=== PATIENT | female | born 1985 | race Caucasian/White ===

== ENCOUNTER 2020-05-02 18:42 | Emergency (ER) | payer OTHER ==
[~2020-05-02] VITALS: Ht 165.1 cm; Wt 68.0 kg
[2020-05-02 19:29] LABS: BASOPHILS 0.9 % (0.0-2.0); EOSINOPHILS 2.8 % (0.0-3.0); HEMOGLOBIN 12.3 gm/dL (12.0-15.0); LYMPHOCYTES 36.7 % (24.0-44.0); MCH 33.5 pg (26.0-34.0); MCHC 35.1 g/dL (28.0-37.0); MCV 95.4 fL (80.0-100.0); MONOCYTES 9.4 % (1.0-8.0); PLATELET COUNT 254 thou/uL (150-400); POLYS 50.2 % (36.0-66.0); RBC 3.67 mil/uL (4.20-5.00); RDW 12.7 % (10.5-14.5)
[2020-05-02 19:42] LABS: URINE BILIRUBIN NEGATIVE (Negative); URINE BLOOD NEGATIVE (Negative); URINE CLARITY CLEAR; URINE COLOR YELLOW; URINE GLUCOSE-RANDOM* NEGATIVE (Negative); URINE KETONES NEGATIVE (Negative); URINE LEUKOCYTES-REFLEX NEGATIVE (Negative); URINE NITRITE-REFLEX NEGATIVE (Negative); URINE PROTEIN (DIPSTICK) NEGATIVE (Negative); URINE SPECIFIC GRAVITY 1.025 (1.005-1.035); URINE UROBILINOGEN 0.2 E.U./dl (0.2-1.0)
[2020-05-02 19:42] LABS: CALCIUM 8.5 mg/dL (8.5-10.1); CREATININE 0.8 mg/dL (0.6-1.0)
[2020-05-02 20:19] VITALS: BP 124/89
[2020-05-02] MEDS ORDERED: MOBIC7.5 MG PO (20:29)
== END 2020-05-02 21:00 | disposition home or self-care (01) ==
LOC: ER 18:42
PROVIDERS: Nurse Practitioner Family
DX: S29.012A Strain of muscle and tendon of back wall of thorax, initial encounter (principal); S30.0XXA Contusion of lower back and pelvis, initial encounter; M54.17 Radiculopathy, lumbosacral region; Z88.8 Allergy status to other drugs, medicaments and biological substances; W10.9XXA Fall (on) (from) unspecified stairs and steps, initial encounter; Y93.89 Activity, other specified; Y92.89 Other specified places as the place of occurrence of the external cause; Y99.9 Unspecified external cause status

== ENCOUNTER 2020-05-27 21:50 | Emergency (ER) | payer OTHER ==
[~2020-05-27] VITALS: Ht 167.6 cm; Wt 63.5 kg
[~2020-05-27 21:50] MED LIST: MOBIC7.5 MG PO
[2020-05-28 01:03] VITALS: BP 98/56
== END 2020-05-28 01:03 | disposition home or self-care (01) ==
LOC: ER 21:50
DX: S01.511A Laceration without foreign body of lip, initial encounter (principal); S00.12XA Contusion of left eyelid and periocular area, initial encounter; S40.022A Contusion of left upper arm, initial encounter; S80.12XA Contusion of left lower leg, initial encounter; S70.11XA Contusion of right thigh, initial encounter; S00.03XA Contusion of scalp, initial encounter; S10.93XA Contusion of unspecified part of neck, initial encounter; E03.9 Hypothyroidism, unspecified; Z90.89 Acquired absence of other organs; Z88.8 Allergy status to other drugs, medicaments and biological substances; Y04.2XXA Assault by strike against or bumped into by another person, initial encounter; Y93.89 Activity, other specified; Y92.89 Other specified places as the place of occurrence of the external cause; Y99.8 Other external cause status